=== PATIENT | male | born 1930 | race Caucasian/White ===

== ENCOUNTER 2017-09-03 17:00 | Inpatient (IN) | payer MEDICARE ==
[2017-09-03] MEDS ORDERED: Piperacillin/Tazobac ADVAN(*) 3.375 GM in NS 0.9% 100 ML* 100 ML IVPB ONE (17:09)
[2017-09-03] MEDS ORDERED: Cefepime(*) 2 GM in NS 0.9% 50 ML* 50 ML IVPB ONE (17:25)
[2017-09-03] MEDS ORDERED: NS 0.9% 1000 ML* 1,000 ML IV ONE (17:40)
[2017-09-03] MEDS ORDERED: Acetaminophen TAB* 325 MG PO ONE (17:41)
[2017-09-03 17:56] LABS: ABS Basophils 0 10^3/ul (0-0.2); ABS Eosinophils 0 10^3/ul (0-0.6); ABS Lymphocytes 0.4 10^3/ul (1.0-4.8); ABS Monocytes 15.6 10^3/ul (0-0.8); ABS Neutrophils 0.1 10^3/ul (1.5-7.7); ABS Nucleated RBC 0 10^3/ul; Eosinophil % 0 % (0-6); Hematocrit 31 % (42-52); Hemoglobin 10.5 g/dl (14.0-18.0); Lymphocyte % 2.4 % (25-47); Mean Corpuscular HGB Conc 35 g/dl (31-36); Mean Corpuscular Hemoglobin 31 pg (27-31); Mean Corpuscular Volume 91 fL (80-94); Mean Platelet Volume 8.4 um3 (7.4-10.4); Nucleated Red Blood Cells % 0.2; Platelet Count 13 10^3/ul (150-450); Red Blood Count 3.35 10^6/ul (4.00-5.40); Red Cell Distribution Width 20 % (10.5-15)
[2017-09-03 17:57] LABS: INR 1.19 (0.77-1.02)
[2017-09-03 18:04] LABS: EGFR Non-African American 75.9 (>60)
--- NOTE | 2017-09-03 18:23 | RAD ---
Indication: Fever with neutropenia. 2 views of the chest are reviewed. Dual-energy PA views were obtained. No mediastinal shift is noted. Heart is of normal size and configuration. There is bibasilar airspace disease which appears to be somewhat linear in appearance likely representing bibasilar atelectasis. No pleural fluid is identified. No pneumothorax is noted. IMPRESSION: Streaky airspace disease in the lung bases likely representing bibasilar atelectasis.
[2017-09-03 19:10] LABS: ABS Neutrophils 0 10^3/ul (1.5-7.7); Monocytes % 1 % (0-7)
[2017-09-03] MEDS ORDERED: Polyethylene Glycol 3350* 17 GM PACKET PO PRN (20:06)
[2017-09-03] MEDS ORDERED: Magnesium Hydroxide LIQ* 30 ML UDC PO PRN (20:06)
[2017-09-03] MEDS ORDERED: NS 0.9% 1000 ML* 1,000 ML IV SCH (20:15)
[2017-09-03] MEDS ORDERED: HydroxyUREA CAP* 500 MG CAP PO SCH (21:00)
--- NOTE | 2017-09-03 21:20 | ED ---
Sukh Roberts Angela, scribed for Antonino Medina MD on 09/03/17 at 1730 . HPI Febrile Illness - HPI Summary HPI Summary: This pt is an 86 y/o male, accompanied by his son in law, presenting to [facility] c/ o red dots all over his body. Son in law reports the pt was diagnosed with acute myeloid leukemia and is currently undergoing treatment at [facility]. Pt is not on chemotherapy. Pt noticed he began to develop red dots diffusely all over his body, including his thighs and neck. They called pt's oncologist and he advised them to come to the ED. Pt was noted to have a fever during triage of 101 F. He did not feel fever prior to coming to the ED. Denies abd pain, nausea, left hip pain. He states he is constipated. Pt denies difficulty voiding. Pt is from [place] and is visiting the area PMHx includes hypothyroid, left total replacement, hip was infected and found CA (in late Jan.), undifferentiated AML, anemia, thrombocytopenia. Pt is neutropenic with neutrophils % of 0. Pt was recently admitted to the hospital from 08/23-08/28 for leukocytosis. He had a platelet transfusion 4 days ago where he received 2 units of blood. He does not have a port. Pt is currently on Cipro every day, Acyclovir, Hydroxyurea, magic mouthwash ( for his mouth lesions). - History of Current Complaint Chief Complaint: EDFever Time Seen by Provider: 09/03/17 17:10 Hx Obtained From: Patient Onset/Duration: Started Hours Ago, Still Present Timing: Lasting Hours Pain Scale Used: 0-10 Numeric Aggravating Factors: Nothing Alleviating Factors: Nothing Associated Signs and Symptoms: Rash - red dots diffusely over body, Other: - Allergy/Home Medications Allergies/Adverse Reactions: Allergies Allergy/AdvReac Type Severity Reaction Status Date / Time No Known Allergies Allergy Verified 09/03/17 17:03 Home Medications: Home Medications Acyclovir* [Zovirax 400 MG TAB*] 400 mg PO BID 09/03/17 [History Confirmed 09/03] Allopurinol TAB* [Zyloprim 300 MG TAB*] 300 mg PO DAILY 09/03/17 [History Confirmed 09/03/17] Bisacodyl EC TAB* [Dulcolax EC TAB*] 5 mg PO DAILY PRN 09/03/17 [History Confirmed 09/03/17] Ciprofloxacin TAB* [Cipro 500 MG TAB*] 500 mg PO BID 09/03/17 [History Confirmed 09/03/17] Docusate Sodium [Stool Softener] 250 mg PO DAILY PRN 09/03/17 [History Confirmed 09/03/17] Finasteride [Proscar] 5 mg PO QAM 09/03/17 [History Confirmed 09/03/17] HydroxyUREA CAP* [Hydrea CAP*] 500 mg PO BID 09/03/17 [History Confirmed ] Levothyroxine TAB* [Synthroid TAB*] 112 mcg PO QAM 09/03/17 [History Confirmed 09/03/17] Magnesium Hydroxide LIQ* [Milk of Magnesia LIQ*] 30 ml PO DAILY PRN 09/03/17 [ History Confirmed 09/03/17] Melatonin (NF) 3 mg PO BEDTIME 09/03/17 [History Confirmed 09/03/17] Pentoxifylline CR TAB* [TRENtal CR TAB*] 400 mg PO TID 09/03/17 [History Confirmed 09/03/17] Polyethylene Glycol 3350* [Miralax*] 17 gm PO DAILY PRN 09/03/17 [History Confirmed 09/03/17] Primidone TAB(*) [Mysoline TAB(*)] 50 mg PO BID 09/03/17 [History Confirmed 05/19] Simvastatin TAB(NF) [Zocor(NF)] 20 mg PO BEDTIME 09/03/17 [History Confirmed 05/19] amLODIPine TAB* [Norvasc 5 mg TAB*] 5 mg PO QAM 09/03/17 [History Confirmed 05/19] metFORMIN* [Glucophage 500 MG TAB *] 500 mg PO BID 09/03/17 [History Confirmed 09/03/17] PMH/Surg Hx/FS Hx/Imm Hx Endocrine/Hematology History: Reports: Hx Diabetes, Hx Thyroid Disease - Hypothyroid, Hx Anemia Cardiovascular History: Reports: Hx Hypertension Denies: Hx Myocardial Infarction History: Reports: Hx Benign Prostatic Hyperplasia - Cancer History Cancer Type, Location and Year: Acute myeloid leukemia - Surgical History Surgery Procedure, Year, and Place: Left total hip replacement Infectious Disease History: No Infectious Disease History: Denies: Traveled Outside the [place] in Last 30 Days - Family History Known Family History: Negative: Cardiac Disease - Social History Alcohol Use: None Substance Use Type: Reports: None Smoking Status (MU): Never Smoked Tobacco Review of Systems Positive: Fever Negative: Cough Gastrointestinal: Other - constipation Negative: Abdominal Pain, Nausea Positive: no symptoms reported, see HPI Negative: Other - left hip pain Skin: Other - red dots all over body All Other Systems Reviewed And Are Negative: Yes Physical Exam - Summary Physical Exam Summary: Appearance: Well appearing, no pain distress Skin: warm, dry. He has small area of non blanching petechiae on his legs, neck , abdomen, back. Surgical scar on L hip, no redness or tenderness. Head/face: normal Eyes: EOMI, SUSHILA ENT: Sores inside the mouth, ulcerations on the palate. Neck: supple, non-tender Respiratory: Rustling breath sounds in the left upper lobe. Breath sounds present. Cardiovascular: RRR, pulses symmetrical Abdomen: non-tender, soft Bowel: present Musculoskeletal: normal, strength/ROM intact Neuro: normal, sensory motor intact, A&Ox3 Triage Information Reviewed: Yes Vital Signs On Initial Exam: Initial Vitals Temp Pulse Resp BP Pulse Ox 101.0 F 102 17 168/82 97 09/03/17 17:01 09/03/17 17:01 09/03/17 17:01 09/03/17 17:01 09/03/17 17:01 Vital Signs Reviewed: Yes Diagnostics - Vital Signs Vital Signs Temp Pulse Resp BP Pulse Ox 09/03/17 17:01 101.0 F 102 17 168/82 97 - Laboratory Lab Results: Lab Results 09/03/17 09/03/17 09/03/17 Range/Units 17:34 17:35 17:35 WBC 16.0 H (3.5-10.8) 10^3/ul RBC 3.35 L (4.00-5.40) 10^6/ul Hgb 10.5 L (14.0-18.0) g/dl Hct 31 L (42-52) % MCV 91 (80-94) fL MCH 31 (27-31) pg MCHC 35 (31-36) g/dl RDW 20 H (10.5-15) % Plt Count 13 L* (150-450) 10^3/ul MPV 8.4 (7.4-10.4) um3 Neut % (Auto) 0.4 L (38-83) % Lymph % (Auto) 2.4 L (25-47) % [place] % (Auto) 97.2 H (0-7) % Eos % (Auto) 0 (0-6) % Baso % (Auto) 0 (0-2) % Absolute Neuts (auto) 0.1 L* (1.5-7.7) 10^3/ul Absolute Lymphs (auto) 0.4 L (1.0-4.8) 10^3/ul Absolute Monos (auto) 15.6 H (0-0.8) 10^3/ul Absolute Eos (auto) 0 (0-0.6) 10^3/ul Absolute Basos (auto) 0 (0-0.2) 10^3/ul Absolute Nucleated RBC 0 10^3/ul Neutrophils % 0 L (38-83) % Lymphocytes % 29 (25-47) % Monocytes % 1 (0-7) % Eosinophils % 0 (0-6) % Basophils % 0 (0-2) % Blast Cells % 70 H* % Nucleated RBC % 0.2 Abs Neuts (Manual) 0 L* (1.5-7.7) 10^3/ul Abs Lymphs (Manual) 4.6 (1.0-4.8) 10^3/ul Abs Monocytes (Manual) 0.2 (0-0.8) 10^3/ul Absolute Eos (Manual) 0 (0-0.6) 10^3/ul Abs Basophils (Manual) 0 (0-0.2) 10^3/ul Normal RBC Morphology Normal (Normal) Hem Pathologist Commnt Pending INR (Anticoag Therapy) 1.19 H (0.77-1.02) APTT 35.2 (26.0-36.3) seconds Sodium (135-145) mmol/L Potassium (3.5-5.0) mmol/L Chloride (101-111) mmol/L Carbon Dioxide (22-32) mmol/L Anion Gap (2-11) mmol/L BUN (6-24) mg/dL Creatinine (0.67-1.17) mg/dL Est GFR ( Amer) (>60) Est GFR (Non-Af Amer) (>60) BUN/Creatinine Ratio (8-20) Glucose (70-100) mg/dL Lactic Acid (0.5-2.0) mmol/L Calcium (8.6-10.3) mg/dL Total Bilirubin (0.2-1.0) mg/dL AST (13-39) U/L ALT (7-52) U/L Alkaline Phosphatase (34-104) U/L Total Protein (6.4-8.9) g/dL Albumin (3.2-5.2) g/dL Globulin (2-4) g/dL Albumin/Globulin Ratio (1-3) Influenza A (Rapid) (Negative) Influenza B (Rapid) (Negative) Blood Type O Positive Antibody Screen Negative 09/03/17 09/03/17 09/03/17 Range/Units 17:35 17:35 18:16 WBC (3.5-10.8) 10^3/ul RBC (4.00-5.40) 10^6/ul Hgb (14.0-18.0) g/dl Hct (42-52) % MCV (80-94) fL MCH (27-31) pg MCHC (31-36) g/dl RDW (10.5-15) % Plt Count (150-450) 10^3/ul MPV (7.4-10.4) um3 Neut % (Auto) (38-83) % Lymph % (Auto) (25-47) % [place] % (Auto) (0-7) % Eos % (Auto) (0-6) % Baso % (Auto) (0-2) % Absolute Neuts (auto) (1.5-7.7) 10^3/ul Absolute Lymphs (auto) (1.0-4.8) 10^3/ul Absolute Monos (auto) (0-0.8) 10^3/ul Absolute Eos (auto) (0-0.6) 10^3/ul Absolute Basos (auto) (0-0.2) 10^3/ul Absolute Nucleated RBC 10^3/ul Neutrophils % (38-83) % Lymphocytes % (25-47) % Monocytes % (0-7) % Eosinophils % (0-6) % Basophils % (0-2) % Blast Cells % % Nucleated RBC % Abs Neuts (Manual) (1.5-7.7) 10^3/ul Abs Lymphs (Manual) (1.0-4.8) 10^3/ul Abs Monocytes (Manual) (0-0.8) 10^3/ul Absolute Eos (Manual) (0-0.6) 10^3/ul Abs Basophils (Manual) (0-0.2) 10^3/ul Normal RBC Morphology (Normal) Hem Pathologist Commnt INR (Anticoag Therapy) (0.77-1.02) APTT (26.0-36.3) seconds Sodium 130 L (135-145) mmol/L Potassium 4.2 (3.5-5.0) mmol/L Chloride 98 L (101-111) mmol/L Carbon Dioxide 23 (22-32) mmol/L Anion Gap 9 (2-11) mmol/L BUN 17 (6-24) mg/dL Creatinine 0.94 (0.67-1.17) mg/dL Est GFR ( Amer) 91.9 (>60) Est GFR (Non-Af Amer) 75.9 (>60) BUN/Creatinine Ratio 18.1 (8-20) Glucose 251 H (70-100) mg/dL Lactic Acid 1.4 (0.5-2.0) mmol/L Calcium 8.5 L (8.6-10.3) mg/dL Total Bilirubin 0.60 (0.2-1.0) mg/dL AST 81 H (13-39) U/L ALT 113 H (7-52) U/L Alkaline Phosphatase 142 H (34-104) U/L Total Protein 6.7 (6.4-8.9) g/dL Albumin 3.4 (3.2-5.2) g/dL Globulin 3.3 (2-4) g/dL Albumin/Globulin Ratio 1.0 (1-3) Influenza A (Rapid) Negative (Negative) Influenza B (Rapid) Negative (Negative) Blood Type Antibody Screen Result Diagrams: 09/03/17 17:35 09/03/17 17:35 Lab Statement: Any lab studies that have been ordered have been reviewed, and results considered in the medical decision making process. - Radiology Chest XR Xray Interpretation: Positive (See Comments) - IMPRESSION: Streaky airspace disease in the lung bases likely representing bibasilar atelectasis. Dr. Medina has reviewed this radiology report. Radiology Interpretation Completed By: Radiologist Re-Evaluation - Re-Evaluation First Eval Re-Evaluation Time: 17:48 Comment: They agree to stay in the hospital. Course/Dx - Course Course Of Treatment: Patient with neutropenia due to AML. Currently receiving palliative treatment from [facility]. Now with fever of unknown source. Antibiotics given shortly after arrival. IV fluids. Transfused platelets. Discussed case with oncology and the hospitalist. Admit to hospitalist service with oncology consult. - Febrile Illness Differential Diagnoses: Bacteremia, Medication Reaction, Neoplasm, Pneumonia, Sepsis, Viremia - Diagnoses Provider Diagnoses: Neutropenic fever, Thrombocytopenia, Petechiae - Provider Notifications Discussed Care Of Patient With: Antoine Blair Time Discussed With Above Provider: 17:44 Instructed by Provider To: Other - I discussed pt care with Dr. Blair, oncologist , who states his best recommendation is to admit pt here and he will consult on the pt. [18:27] I discussed with Dr. Moya, hospitalist, who accepted the pt for admission. - Critical Care Time Critical Care Time: 30-74 min - 30 minutes - CCT is EXCLUSIVE of separately billable procedures. Discharge - Sign-Out/Discharge Documenting (check all that apply): Discharge/Admit/Transfer - Admit - Discharge Plan Condition: Guarded Disposition: ADMITTED TO [facility] Referrals: No Primary Care Phys,NOPCP [Primary Care Provider] - - Billing Disposition and Condition Condition: GUARDED Disposition: Admitted to [facility] The documentation as recorded by the Sukh gutierrez Angela accurately reflects the service I personally performed and the decisions made by me, Antonino Medina MD.
[2017-09-03] MEDS: Primidone TAB(*) 50 MG PO SCH (22:52)
[2017-09-03] MEDS: Pentoxifylline CR TAB* 400 MG PO SCH (22:54)
[2017-09-03] MEDS: Atorvastatin* 10 MG TAB PO SCH (22:54)
[2017-09-03] MEDS: Docusate CAP* 100 MG PO SCH (22:54)
[2017-09-03] MEDS: Melatonin 3 MG TAB PO SCH (22:54)
[2017-09-03] MEDS: metFORMIN* 500 MG TAB PO SCH (22:54)
[2017-09-03] MEDS: Ciprofloxacin TAB* 500 MG PO SCH (22:54)
[2017-09-03] MEDS: Senna TAB PO SCH (22:54)
[2017-09-03] MEDS: Acyclovir* 400 MG TAB PO SCH (22:54)
[2017-09-03] MEDS: Magic M W2 Ben/Maal/Nyst/Lido* 240 ML MOUTHWASH (alt formulation) SWISH SWAL SCH (22:56)
[2017-09-03 23:41] LABS: Urine Appearance Clear; Urine Blood 3+ (Negative); Urine Color Yellow; Urine Ketones Negative (Negative); Urine Protein 1+(30 mg/dL) (Negative); Urine Specific Gravity 1.008 (1.010-1.030); Urine Urobilinogen Negative (Negative)
--- NOTE | 2017-09-04 02:14 | HP ---
ADMISSION HISTORY AND PHYSICAL: DATE OF ADMISSION: 09/03/17 PRIMARY CARE PROVIDER: His oncologist, Dr. Renae at [facility]. HEALTHCARE PROXY: His son-in-law, Adair. CODE STATUS: Full. Discussed with the patient and his healthcare proxy. SOURCE OF INFORMATION: History obtained from interview with the patient and his son-in-law as well as review from Dr. Renae's most recent note from . RELIABILITY: Good. CHIEF COMPLAINT: Rash. HISTORY OF PRESENT ILLNESS: This is an 86-year-old gentleman with past medical history of hypertension, hypothyroidism as well as a left total hip replacement in 2002 that had a recent infection with removal of the femoral component and extensive debridement, recently diagnosed with AML, undifferentiated type in February 2017. He underwent 4 cycles of azacitidine starting 02/07/17 and completed a fourth round in May 2017. He did not receive any further therapy or aza due to the persistently high circulation of blasts. They explored clinical trials; however, none were available partially due to the leukemia being undifferentiated. He has been followed at the [facility] for supportive transfusions. He was most recently admitted for leukocytosis from to 08/28/17. He was treated with Hydrea hospital stay notable for one episode of epistaxis, which he reports 1 episode of epistaxis since discharge. At that time, he received a platelet transfusion on 08/30/17 prior to traveling to the [facility] to spend time with the family. Review of his medical records indicated white blood cell count of 17.1 with ANC of 0 on and platelets of 33 dropping to platelets of 23 on 08/30/17 possibly before receipt of his platelets. Additionally, last known blast count on 08/28/17 was 85. He was feeling his usual state of health other than a sore mouth from known mucositis and ulcerations, but noticed a new rash on his abdomen. This rash on his abdomen was similar to what was previously reported on 08/30/17 noted on his forehead. He spoke to his oncologist, who referred him to local care. He was seen today and in the emergency room was found to have a temperature of 101 degrees Fahrenheit. He denies any subjective fevers or chills, nausea, vomiting, or lightheadedness. He suffers from constipation, has had no diarrhea. He has had no pain other than in his mouth. He has had no blurry vision or diplopia, headache, loss of consciousness or near loss of consciousness. PAST MEDICAL HISTORY: Includes type 2 diabetes, hypothyroidism, hypertension, left hip infection, AML, receiving supportive care. MEDICATIONS: From his most recent note include: 1. Magic Mouthwash on 1:1 ratio 5 mL every 4 hours as needed. 2. Ciprofloxacin 500 mg twice daily. 3. Hydrea 500 mg twice a day. 4. Allopurinol 1 cap daily. 5. Acyclovir 400 mg twice daily. 6. Finasteride 5 mg daily. 7. Simvastatin 20 mg daily. 8. Amlodipine 5 mg daily. 9. Melatonin 6 mg at bedtime. 10. Primidone 50 mg twice daily. 11. Metformin 500 mg once daily. 12. Pentoxifylline 400 mg CR three times a day with meals. 13. Levothyroxine 112 mcg daily. ALLERGIES: No known drug allergies. FAMILY HISTORY: Unremarkable. SOCIAL HISTORY: No illicits. Retired. PHYSICAL EXAMINATION GENERAL: Elderly man, stated age, sitting up in bed, interactive, in no apparent distress. VITAL SIGNS: In the emergency room, 163/84, heart rate 84, respiratory rate is 16, 98% on room air, T-max is 101. HEENT: Oropharynx has notable ulcerations in his left superior palate. Moist mucous membranes. Sclerae are anicteric. NECK: Non-elevated JVD. LUNGS: Rhonchi in his right base extending up one-third to the apex. HEART: 2/6 systolic ejection murmur loudest in the left upper sternal border. ABDOMEN: Soft, nontender, nondistended. EXTREMITIES: Warm and well-perfused without clubbing, cyanosis, or edema. NEUROLOGIC: He is alert and oriented x3. SKIN: Does indicate nodular, erythematous rash with each nodule about 1 mm in size, most notable in the upper abdomen as well as bilateral thighs, nonblanching. DIAGNOSTIC STUDIES/LAB DATA: Labs reviewed, notable for negative influenza. White blood cell count of 16.4 with 100 neutrophils, predominantly monocytes, 70 % absolute blasts, absolute neutrophils are 0 on manual count, platelets are 13 , hemoglobin is 10.5. INR 1.1. Sodium 130. BUN 17, creatinine 0.94. Calcium 8.5. AST 81, ALT 113, alk phos 142. X-ray, impression: Streaky airspace disease in the left lung bases likely representing bibasilar atelectasis. ASSESSMENT AND PLAN: This is an 86-year-old man with past medical history of acute myeloid leukemia, received 4 treatments with azacitidine without response , now on Hydrea presenting to the hospital with rash, found with neutropenic fever. 1. Neutropenic fever, received cefepime in the emergency room, continue 2 g q.8 hours. Neutropenic precautions and neutropenic diet. A liter of normal saline at 75 mL per hour slowly and Oncology consultation. 2. Thrombocytopenia, worse than his last known value. We will transfuse a unit of platelets now, recheck, likely in the setting of acute myeloid leukemia. 3. Type 2 diabetes, continue metformin low-dose. 4. Hypertension, continue amlodipine. 5. Acute myeloid leukemia, holding Hydrea in the setting of thrombocytopenia, fever. Restart based on Oncology recommendations. Continue allopurinol, acyclovir, ciprofloxacin. 6. Oral ulcers. Continue Magic Mouthwash and can increase dose as needed. 7. DVT prophylaxis. Contraindicated. 8. Code status is full. Discussed with the patient and his family. [id number]/CPS #: [id number]
[2017-09-04] MEDS: Cefepime 2 GM in Dextrose(*) 2 GM/50 ML BAG IV SCH ×3 (02:17→18:09)
[2017-09-04] MEDS: Levothyroxine TAB* 112 MCG TAB PO SCH (05:57)
[2017-09-04] MEDS: Acetaminophen TAB* 325 MG PO PRN ×4 (05:57→20:25)
[2017-09-04 06:06] LABS: INR 1.26 (0.77-1.02)
[2017-09-04 06:24] LABS: Monocytes % 1 % (0-7)
[2017-09-04 06:25] LABS: ABS Basophils 0 10^3/ul (0-0.2); ABS Eosinophils 0 10^3/ul (0-0.6); ABS Lymphocytes 2.8 10^3/ul (1.0-4.8); ABS Monocytes 12.5 10^3/ul (0-0.8); ABS Neutrophils 0 10^3/ul (1.5-7.7); ABS Nucleated RBC 0.1 10^3/ul; EGFR Non-African American 81.9 (>60); Eosinophil % 0 % (0-6); Hematocrit 29 % (42-52); Mean Corpuscular HGB Conc 35 g/dl (31-36); Mean Corpuscular Hemoglobin 32 pg (27-31); Mean Corpuscular Volume 90 fL (80-94); Nucleated Red Blood Cells % 0.3; Platelet Count 24 10^3/ul (150-450); Red Blood Count 3.17 10^6/ul (4.00-5.40); Red Cell Distribution Width 20 % (10.5-15); White Blood Count 15.3 10^3/ul (3.5-10.8)
[2017-09-04] MEDS: Pentoxifylline CR TAB* 400 MG PO SCH ×3 (08:55→20:09)
[2017-09-04] MEDS: Docusate CAP* 100 MG PO SCH ×2 (08:56→20:09)
[2017-09-04] MEDS: Ciprofloxacin TAB* 500 MG PO SCH (08:56)
[2017-09-04] MEDS: Senna TAB PO SCH ×2 (08:56→20:08)
[2017-09-04] MEDS: Finasteride TAB* 5 MG PO SCH (08:56)
[2017-09-04] MEDS: Primidone TAB(*) 50 MG PO SCH ×2 (08:56→20:08)
[2017-09-04] MEDS: Acyclovir* 400 MG TAB PO SCH (08:57)
[2017-09-04] MEDS: Allopurinol TAB* 300 MG PO SCH (08:57)
[2017-09-04] MEDS: metFORMIN* 500 MG TAB PO SCH ×2 (08:57→20:09)
[2017-09-04] MEDS: Magic M W2 Ben/Maal/Nyst/Lido* 240 ML MOUTHWASH (alt formulation) SWISH SWAL SCH ×4 (08:57→20:08)
[2017-09-04] MEDS ORDERED: amLODIPine TAB* 5 MG PO SCH (09:00)
[2017-09-04] MEDS: amLODIPine TAB* 5 MG PO SCH (09:57)
[2017-09-04] MEDS ORDERED: Morphine ORAL CONCENTRATE* 5 MG/0.25 ML ORAL.SYRIN SL PRN (11:12)
--- NOTE | 2017-09-04 12:46 | RAD ---
INDICATION: Neutropenic fever COMPARISON: Chest x-ray September 03, 2017 TECHNIQUE: Axial source images were obtained from the thoracic inlet to the hemidiaphragms. Coronal and sagittal reconstructed images were acquired. The visualized neck to include the thyroid appear normal. Chest wall: There are no acute abnormalities of the bony thorax or chest wall. There is no supraclavicular, infraclavicular, or axillary lymphadenopathy. Lungs : There is a 7 mm pleural-based nodule in the right lung apex and a peripheral 1 cm nodule in the lingular segment. There are no additional discrete nodules. There is consolidative change in right middle lobe with air bronchograms most consistent with a pneumonitis. There is bibasilar interstitial change. There is coarsening of the pulmonary interstitium There are no endobronchial lesions. Cardiomediastinal structures: The heart is normal in size. There is a trace pericardial effusion. There is no evidence of aortic aneurysm or dissection. The pulmonary vessels appear normal. There is no mediastinal or hilar adenopathy. The esophagus appears normal. Pleura : There are no significant pleural effusions. Other: Limited views the upper abdomen show an incompletely characterized low-density right hepatic lesion measuring 1.5 cm. This may represent a cyst. There is cholelithiasis. There are renal cortical and parapelvic cysts which are imaged in part. IMPRESSION: 1. Nonspecific subcentimeter nodularity as described. Consolidative change in the right middle lobe likely related acute pneumonitis. Suggest follow-up imaging. 2. Probable hepatic, renal cortical, and parapelvic cysts. 3. Cholelithiasis.
[2017-09-04] MEDS: ValACYclovir (*) 1 GM TAB PO SCH ×2 (13:55→20:21)
--- NOTE | 2017-09-04 14:57 | CONS ---
CONSULTATION REPORT: DATE OF CONSULT: 09/04/17 REASON FOR CONSULT: AML. 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 He presented with infection of a left hip replacement. In the process of evaluation, he was found to have peripheral blast. He was treated with prolonged course of IV and then p.o. antibiotics for the hip infection and subsequently started therapy for the AML. Given age and medical comorbidities, he was treated with azacytidine. He had four cycles through May 2017 but failed to respond. The hip infection remained controlled after replacement of the femoral component of the prosthesis. After stopping azacytidine in June, he initially did well. He followed at [facility] and there was a discussion about clinical trials. He applied for several clinical trials but was never accepted on a study because per family the AML was undifferentiated. He presented on 08/23/17 with increasing blasts and was started on hydroxyurea 1500 mg p.o. b.i.d. He initially did well that and was able to go home from the hospital. Last week, he developed sores in his mouth and hydroxyurea was held. He came to [facility] for family vacation with plans to be here for one week. Yesterday, he started to develop hematuria. He developed a diffuse rash with small erythematous red lesions and had a fever of 101. He came to the emergency room and was found to have a white count of 16,000, almost entirely blasts, hemoglobin 10.5, MCV 91, platelets 13,000. Because of the hematuria, he was given one unit of platelets and followup CBC showed a white count of 24,000, blasts 15.3 and hemoglobin down to 10. He was slightly hyponatremic, normal renal function, mild elevation in LFTs. He had a chest x-ray that was negative except for some consolidation in the base. Urine: There was +1 white blood cells, +3 red blood cells. Cultures to date are negative. He was started on cefepime 2 g q.8 hours and subsequently temperature is 98.0 today. Other than the hematuria and the rash, he has been feeling fine at his baseline. PAST MEDICAL HISTORY: 1. Hip abscess, January 2017, resolved with antibiotics and exchange of hardware. 2. Arthritis, hip replacement in 2012. 3. Diabetes. 4. Hypertension. 5. Peripheral vascular disease. 6. Hypothyroidism. 7. High cholesterol. PAST SURGICAL HISTORY: In addition to hip surgery as noted above, he had a TURP April 2017, which was uneventful. MEDICATIONS ON ADMISSION: 1. Magic mouthwash q.4 hours p.r.n. 2. Ciprofloxacin 500 twice daily. 3. Hydroxyurea 500 three times a day, had been on hold. 4. Allopurinol 300 mg daily. 5. Acyclovir 400 mg daily. 6. Proscar 5 mg daily. 7. Simvastatin 20 daily. 8. Amlodipine 5 mg daily. 9. Melatonin 2 mg at night. 10. Primidone 50 mg daily. 11. Metformin 500 mg daily. 12. Pentoxifylline 400 mg three times a day. 13. Synthroid 112 mcg daily. ALLERGIES: None. FAMILY HISTORY: The only significant history of malignancy is a granddaughter who had a brain cancer. SOCIAL HISTORY: Strong family support. Son-in-law was with him in clinic. He does not smoke, does not drink. He is retired and . is still alive. Three children, one is in [place] and he was on a multigenerational family vacation at [facility] when he came to the emergency room. REVIEW OF SYSTEMS: General: Energy has been low but stable. HEENT: Mouth sores started about a week and a half ago. He stopped hydroxyurea, did not really get any better. GI: Low appetite, he had been constipated. : Hematuria yesterday, otherwise negative. Respiratory: Negative. Cardiac: Negative. Neurologic: Negative. Skin: Rash as noted above. Hematologic and Lymphatic: No excessive bruising. PHYSICAL EXAM: Vital Signs: Temperature 98.0, pulse 87, BP 156/77, saturation 98%. HEENT: He has ulcerations in the posterior hard palate on the left side. No tongue lesions. No thrush. Lungs: Clear to auscultation. Heart: Regular rhythm. S1, S2. No murmurs or gallops. Nodes: No peripheral lymphadenopathy. Abdomen: No hepatosplenomegaly. Good bowel sounds, nontender. Skin: Small papules scattered throughout, 2 to 4 mm, bright red. Extremities: Decreased pulses. Lower extremities, no edema. Neurologic: Alert and oriented x3, full exam otherwise deferred. DIAGNOSTIC STUDIES/LAB DATA: Admission labs as noted and CBC today as noted above. 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 He has progressive disease over the past several weeks with multiple complications. He now comes in with neutropenic fever and pancytopenia. I discussed with the patient and the son-in-law that I think he is at the end stage of the disease. Patients with AML typically from infection or inability to sustain blood counts. He may be suffering both of those. Given that his fever occurred on ciprofloxacin, I agree with cefepime. I discussed the case with the environmental health and safety leader physician for Dr. Weldon at [facility] and their suggestion was also to get a CT of the chest to look for fungal infection. We discussed goals of care which is comfort and time with family. His options are that we try to maximize his platelets and find a suitable oral antibiotic regimen, so that he can be discharged to drive back to [place]. There will be a risk that he decompensates after discharge from progressive infection. However , hospital- hospital transfer back to [place] is unrealistic given cost of the ambulance. The second option is that he transition to hospice and supportive care only in [place]. We will consult with the hospice resident if a bed is available. 1. Given the mouth sores are not improved off hydroxyurea, we will give a trial of Valtrex 1000 mg p.o. b.i.d. and stop the acyclovir. Continue Magic mouth wash. 2. Increasing leukocytosis. Hydroxyurea 500 mg p.o. b.i.d. 3. Thrombocytopenia. Transfuse platelets under 10,000. 4. Infectious disease. I would stop the ciprofloxacin, continue with cefepime. We will send a CT of the chest, if we see suspicious nodules, treat empirically for fungal infection with voriconazole. 5. Discussed DNR and DNI with the patient and his son-in-law at length. My recommendation will be to not escalate care. Son-in-law seemed in favor. The patient is having a difficult time understanding limitations on care conceptually. The family will talk further. 6. Disposition will depend on palliative course they choose. We will continue to follow while in the hospital and be available for any questions. [id number]/[facility] #: [id number] [facility]
--- NOTE | 2017-09-04 15:16 | PN ---
Subjective Date of Service: 09/04/17 Interval History: Patient has had no recurrences of subjective fevers. Patient feeling tired but otherwise feeling well. Persistent dark urine without brayan blood. Pain with swallowing related to mouth ulcers unchanged. No new rash. Denies CP, SOB, F/C, N/V, abdominal pain, diarrhea, Dysuria, or other pain. Family History: Unchanged from Admission Social History: Unchanged from Admission Past Medical History: Unchanged from Admission Objective Active Medications: Acetaminophen (Tylenol Tab*) 650 mg PO Q4H PRN PRN Reason: FEVER/PAIN Last Admin: 09/04/17 14:04 Dose: 650 mg Allopurinol (Zyloprim Tab*) 300 mg PO DAILY [facility] Last Admin: 09/04/17 08:57 Dose: 300 mg Amlodipine Besylate (Norvasc Tab*) 10 mg PO QAM [facility] Last Admin: 09/04/17 09:57 Dose: 10 mg Atorvastatin Calcium (Lipitor*) 10 mg PO BEDTIME [facility] Last Admin: 09/03/17 22:54 Dose: 10 mg Docusate Sodium (Colace Cap*) 100 mg PO BID [facility] Last Admin: 09/04/17 08:56 Dose: 100 mg Finasteride (Proscar Tab*) 5 mg PO QAM [facility] Last Admin: 09/04/17 08:56 Dose: 5 mg Hydroxyurea (Hydrea Cap*) 500 mg PO BID [facility] Cefepime HCl (Maxipime 2 Gm In Dextrose Duplex (*)) 2 gm in 50 mls @ 100 mls/ hr IV Q8H [facility] Last Admin: 09/04/17 10:01 Dose: 100 mls/hr Levothyroxine Sodium (Synthroid Tab*) 112 mcg PO DAILY@0600 [facility] Last Admin: 09/04/17 05:57 Dose: 112 mcg Magnesium Hydroxide (Milk Of Magnesia Liq*) 30 ml PO DAILY PRN PRN Reason: CONSTIPATION Melatonin (Melatonin) 3 mg PO BEDTIME [facility] Last Admin: 09/03/17 22:54 Dose: 3 mg Metformin HCl (Glucophage*) 500 mg PO BID [facility] Last Admin: 09/04/17 08:57 Dose: 500 mg Morphine Sulfate (Morphine Oral Concentrate*) 5 mg SL Q2H PRN PRN Reason: PAIN Multi-Ingredient Mouthwash/Gargle (Magic M W2 Toni/Maal/Nyst/Lido*) 5 ml SWISH SWAL QID [facility] Last Admin: 09/04/17 13:56 Dose: 5 ml Pentoxifylline (Trental Cr Tab*) 400 mg PO TID [facility] Last Admin: 09/04/17 13:55 Dose: 400 mg Polyethylene Glycol/Electrolytes (Miralax*) 17 gm PO DAILY PRN PRN Reason: CONSTIPATION Last Admin: 09/04/17 08:57 Dose: 17 gm Primidone (Mysoline Tab(*)) 50 mg PO BID [facility] Last Admin: 09/04/17 08:56 Dose: 50 mg Senna (Senokot Tab*) 1 tab PO BID [facility] Last Admin: 09/04/17 08:56 Dose: 1 tab Valacyclovir HCl (Valtrex 1 Gm(*)) 1 gm PO BID [facility]; Protocol Last Admin: 09/04/17 13:55 Dose: 1 gm Vital Signs - 8 hr 09/04/17 09/04/17 09/04/17 07:39 08:00 11:24 Temperature 98.0 F 98.0 F Pulse Rate 86 87 Respiratory 18 18 19 Rate Blood Pressure 146/73 156/77 (mmHg) O2 Sat by Pulse 97 98 Oximetry Oxygen Devices in Use Now: None Appearance: Patient is an 86yo male who appears stated age and is sitting in the bed in [facility]. Eyes: No Scleral Icterus, PERRLA Ears/Nose/Mouth/Throat: Mucous Membranes Moist, - - Shallow erythmatous ulcerations on oral mucosa. Neck: NL Appearance and Movements; NL JVP, Trachea Midline Respiratory: Symmetrical Chest Expansion and Respiratory Effort, Clear to Auscultation Cardiovascular: NL Sounds; No Murmurs; No JVD, RRR, No Edema Abdominal: NL Sounds; No Tenderness; No Distention, No Hepatosplenomegaly Lymphatic: No Cervical Adenopathy Extremities: No Edema, No Clubbing, Cyanosis Skin: No Nodules or Sclerosis, - - Numerous Small non-blanching, hard, papules scattered across skin of abdomen. Neurological: Alert and Oriented x 3, NL Sensation, NL Muscle Strength and Tone , - - CN II-XII intact. 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 - Patient Problems (1) Acute myeloblastic leukemia Current Visit: Yes Status: Acute Code(s): C92.00 - ACUTE MYELOBLASTIC LEUKEMIA, NOT HAVING ACHIEVED REMISSION SNOMED Code(s): 94167649 Comment: Appreciate Hematology consult. Follows with [facility] outpatient. No tolerable treatment modality. Resumed Hydroxyurea. High percentage of circulating blasts. ANC count 0. Neutropenic precautions. WBC count up to 16k from 10K last week. Poor prognosis discussed with the patient. (2) Thrombocytopenia Current Visit: Yes Status: Acute Code(s): D69.6 - THROMBOCYTOPENIA, UNSPECIFIED SNOMED Code(s): 740109604 Comment: Severe, likely cause of hematuria. Transfuse below 10K. (3) Neutropenic fever Current Visit: Yes Status: Acute Code(s): D70.9 - NEUTROPENIA, UNSPECIFIED; R50.81 - FEVER PRESENTING WITH CONDITIONS CLASSIFIED ELSEWHERE SNOMED Code(s) : 582663308 Comment: Isolated fever to 101.0. Resolved after antibiotics. Continue Cefepime, Voriconazole, Valtrex. Stop Cipro and Acyclovir. Continue antibiotics indefinitely. (4) CAD (coronary artery disease) Current Visit: Yes Status: Acute Code(s): I25.10 - ATHSCL HEART DISEASE OF [place] CORONARY ARTERY W/O ANG PCTRS SNOMED Code(s): 77340344 Comment: Chest Pain free. Continue statin. Will discuss ending therapies aimed at senior care prevention. (5) PVD (peripheral vascular disease) Current Visit: Yes Status: Acute Code(s): I73.9 - PERIPHERAL VASCULAR DISEASE, UNSPECIFIED SNOMED Code(s): 213261364 Comment: Continue statin. (6) DM II (diabetes mellitus, type II), controlled Current Visit: Yes Status: Acute Code(s): E11.9 - TYPE 2 DIABETES MELLITUS WITHOUT COMPLICATIONS SNOMED Code(s): 75713770 Comment: Continue metformin. (7) Hypothyroid Current Visit: Yes Status: Acute Code(s): E03.9 - HYPOTHYROIDISM, UNSPECIFIED SNOMED Code(s): 82262989 Comment: Continue Synthroid. (8) DVT prophylaxis Current Visit: Yes Status: Acute Code(s): SOC0537 - SNOMED Code(s): 145648277 Comment: SCDs in setting of severe thrombocytopenia. (9) DNR (do not resuscitate) Current Visit: Yes Status: Acute Comment: MOLST filled out and signed with patient. Status and Disposition: Inpatient.
[2017-09-04] MEDS: VORICONAZOLE 50 MG PO SCH (16:39)
[2017-09-04] MEDS: Melatonin 3 MG TAB PO SCH (20:08)
[2017-09-04] MEDS: Atorvastatin* 10 MG TAB PO SCH (20:08)
[2017-09-04] MEDS: HydroxyUREA CAP* 500 MG CAP PO SCH (20:13)
[2017-09-05] MEDS: Cefepime 2 GM in Dextrose(*) 2 GM/50 ML BAG IV SCH ×2 (02:11→09:11)
[2017-09-05] MEDS: VORICONAZOLE 50 MG PO SCH (04:59)
[2017-09-05] MEDS: Levothyroxine TAB* 112 MCG TAB PO SCH (04:59)
[2017-09-05] MEDS: Acetaminophen TAB* 325 MG PO PRN (06:24)
[2017-09-05 07:00] LABS: ABS Basophils 0 10^3/ul (0-0.2); ABS Eosinophils 0 10^3/ul (0-0.6); ABS Nucleated RBC 0 10^3/ul; Hematocrit 30 % (42-52); Hemoglobin 10.4 g/dl (14.0-18.0); Mean Corpuscular HGB Conc 35 g/dl (31-36); Mean Corpuscular Hemoglobin 32 pg (27-31); Mean Corpuscular Volume 90 fL (80-94); Mean Platelet Volume 8.3 um3 (7.4-10.4); Platelet Count 19 10^3/ul (150-450); Red Cell Distribution Width 20 % (10.5-15); White Blood Count 22.8 10^3/ul (3.5-10.8)
[2017-09-05 07:08] LABS: EGFR Non-African American 77.8 (>60)
[2017-09-05 07:14] VITALS: BP 154/76
[2017-09-05 08:21] LABS: ABS Neutrophils 0 10^3/ul (1.5-7.7)
[2017-09-05 08:23] LABS: ABS Lymphocytes 2.1 10^3/ul (1.0-4.8); ABS Monocytes 0 10^3/ul (0-0.8)
[2017-09-05 08:24] LABS: ABS Neutrophils 0 10^3/ul (1.5-7.7); Monocytes % 0 % (0-7)
[2017-09-05] MEDS ORDERED: Magnesium Oxide TAB* 400 MG PO SCH (09:00)
--- NOTE | 2017-09-05 09:06 | PN ---
Progress Note - Progress Note Date of Service: 09/05/17 SOAP: Subjective: []Feeling fine today. Eating breakfast. Mouth still hurts. No fevers. Allopurinol (Zyloprim Tab*) 300 mg PO DAILY [facility] Last Admin: 09/04/17 08:57 Dose: 300 mg Amlodipine Besylate (Norvasc Tab*) 10 mg PO QAM [facility] Last Admin: 09/04/17 09:57 Dose: 10 mg Atorvastatin Calcium (Lipitor*) 10 mg PO BEDTIME [facility] Last Admin: 09/04/17 20:08 Dose: 10 mg Docusate Sodium (Colace Cap*) 100 mg PO BID [facility] Last Admin: 09/04/17 20:09 Dose: 100 mg Finasteride (Proscar Tab*) 5 mg PO QAM [facility] Last Admin: 09/04/17 08:56 Dose: 5 mg Hydroxyurea (Hydrea Cap*) 500 mg PO BID [facility] Last Admin: 09/04/17 20:13 Dose: 500 mg Cefepime HCl (Maxipime 2 Gm In Dextrose Duplex (*)) 2 gm in 50 mls @ 100 mls/ hr IV Q8H [facility] Last Admin: 09/05/17 02:11 Dose: 100 mls/hr Levothyroxine Sodium (Synthroid Tab*) 112 mcg PO DAILY@0600 [facility] Last Admin: 09/05/17 04:59 Dose: 112 mcg Magnesium Hydroxide (Milk Of Magnesia Liq*) 30 ml PO DAILY PRN PRN Reason: CONSTIPATION Magnesium Oxide (Magox 400 Tab*) 800 mg PO DAILY [facility] Melatonin (Melatonin) 3 mg PO BEDTIME [facility] Last Admin: 09/04/17 20:08 Dose: 3 mg Metformin HCl (Glucophage*) 500 mg PO BID [facility] Last Admin: 09/04/17 20:09 Dose: 500 mg Morphine Sulfate (Morphine Oral Concentrate*) 5 mg SL Q2H PRN PRN Reason: PAIN Multi-Ingredient Mouthwash/Gargle (Magic M W2 Toni/Maal/Nyst/Lido*) 5 ml SWISH SWAL QID [facility] Last Admin: 09/04/17 20:08 Dose: 5 ml Pentoxifylline (Trental Cr Tab*) 400 mg PO TID [facility] Last Admin: 09/04/17 20:09 Dose: 400 mg Polyethylene Glycol/Electrolytes (Miralax*) 17 gm PO DAILY PRN PRN Reason: CONSTIPATION Last Admin: 09/04/17 08:57 Dose: 17 gm Primidone (Mysoline Tab(*)) 50 mg PO BID [facility] Last Admin: 09/04/17 20:08 Dose: 50 mg Senna (Senokot Tab*) 1 tab PO BID [facility] Last Admin: 09/04/17 20:08 Dose: 1 tab Valacyclovir HCl (Valtrex 1 Gm(*)) 1 gm PO BID [facility]; Protocol Last Admin: 09/04/17 20:21 Dose: 1 gm Voriconazole (Vfend (Nf)) 200 mg PO Q12H [facility] Last Admin: 09/05/17 04:59 Dose: 200 mg Objective: [] Vital Signs Temp Pulse Resp BP Pulse Ox 98.3 F 102 18 154/76 95 09/05/17 07:13 09/05/17 07:13 09/05/17 07:13 09/05/17 07:13 09/05/17 07:13 HEENT - did not look again at lesions, eating. No LAD CTA Irregular, S1S2, rate 80s +BS NT ND Ext good pulses, no edema skin no change, rash but no large bruises CT chest wtih right side infiltrate and several small nodules, no old for comparison. Assessment: []86 year old AML progressing and on HU, focus of care is palliative. Plan today is for him to be discharged and drive back to [place] to meet with his doctors at [facility]. Remains neutropenic, moderate increase in blast count. Plan: []1. Discharge on Valtrex 1000 mg po bid, Vorconizole 200 mg po q12 and Augmentin 875 mg po q 12, start this afternoon. 2. No transfusion today. 3. Continue HU at 500 mg po bid. 3. Follow up in [facility] next 48 hrs.
[2017-09-05] MEDS: Primidone TAB(*) 50 MG PO SCH (09:08)
[2017-09-05] MEDS: HydroxyUREA CAP* 500 MG CAP PO SCH (09:09)
[2017-09-05] MEDS: Allopurinol TAB* 300 MG PO SCH (09:09)
[2017-09-05] MEDS: Pentoxifylline CR TAB* 400 MG PO SCH (09:09)
[2017-09-05] MEDS: Senna TAB PO SCH (09:09)
[2017-09-05] MEDS: Docusate CAP* 100 MG PO SCH (09:09)
[2017-09-05] MEDS: Finasteride TAB* 5 MG PO SCH (09:09)
[2017-09-05] MEDS: metFORMIN* 500 MG TAB PO SCH (09:09)
[2017-09-05] MEDS: amLODIPine TAB* 5 MG PO SCH (09:10)
[2017-09-05] MEDS: ValACYclovir (*) 1 GM TAB PO SCH (09:10)
[2017-09-05] MEDS: Magic M W2 Ben/Maal/Nyst/Lido* 240 ML MOUTHWASH (alt formulation) SWISH SWAL SCH (09:10)
--- NOTE | 2017-09-05 10:32 | DS ---
CC: Dr. Marilou Villatoro; Dr. Fatemeh Renae.* DISCHARGE SUMMARY: DATE OF ADMISSION: 09/03/17 DATE OF DISCHARGE: 09/05/17 PRIMARY CARE PROVIDER: Dr. Fatemeh Renae, [facility]. MY ATTENDING WHILE IN THE HOSPITAL: Dr. Marilou Villatoro* (dictated by SHANE Alex). PRIMARY DISCHARGE DIAGNOSES: 1. Neutropenic fever. 2. Acute myelogenous leukemia. 3. Mucositis. 4. Severe thrombocytopenia. 5. Possible Fungal Pneumonia SECONDARY DISCHARGE DIAGNOSES: 1. Diabetes mellitus. 2. Hypothyroidism. 3. Hypertension. 4. Essential tremor. STUDIES DONE WHILE IN THE HOSPITAL: Chest x-ray from 09/03/17 read as streaky airspace disease in the lung bases, likely representing bibasilar atelectasis. Chest CT from 09/04/17 read as nonspecific subcentimeter nodularity, consolidative change in the right middle lobe, likely representing acute pneumonitis, probable hepatic, renal cortical and parapelvic cyst, cholelithiasis. MEDICATIONS AT DISCHARGE: 1. MiraLAX 17 g p.o. daily as needed. 2. Milk of magnesia 30 mL p.o. daily as needed. 3. Dulcolax 5 mg p.o. daily as needed. 4. Docusate 250 mg p.o. daily as needed. 5. Melatonin 3 mg p.o. at bedtime. 6. Finasteride 5 mg p.o. q. a.m. 7. Hydroxyurea 500 mg p.o. b.i.d. 8. Allopurinol 300 mg p.o. daily. 9. Metformin 500 mg p.o. b.i.d. 10. Primidone 50 mg p.o. b.i.d. 11. Pentoxifylline 400 mg p.o. t.i.d. 12. Amlodipine 10 mg p.o. q.a.m. 13. Ciprofloxacin 500 mg p.o. b.i.d. 14. Levothyroxine 112 mcg p.o. q.a.m. 15. Magic mouthwash 5 mL cook islander and swallow 4 times daily. 16. Valacyclovir 1 g p.o. b.i.d. 17. Voriconazole 200 mg p.o. q. 12 hours. Medications discontinued at discharge: Acyclovir. HOSPITAL COURSE: This is a brief summary of the patient's presentation. For more details please see the history and physical from Dr. Wes Brambila on 05/19. In brief, the patient is an 86-year-old male with a past medical history significant for the above who is on vacation at [facility] from [place] for a family function. The patient has been recently diagnosed with acute myelogenous leukemia undergoing 4 cycles of azacitidine which failed to decrease his high circulation of blasts. Clinical trials were explored and no other treatment options with curative potential were found. The patient was recently admitted to [facility] with severe thrombocytopenia and received a platelet transfusion on 08/30/17 with a low platelet count of 23. The patient also had a blast count of 85 n 08/28/17. The patient called his oncologist for a new rash on his abdomen consisting of small red hard papules. The patient had no other symptoms besides pain in his mouth, but was found to have a fever of 101.0 while in the emergency department and an absolute neutrophil count of 0.1. The patient was admitted to the hospital for neutropenic fever, was started of cefepime. The patient received Zosyn and vancomycin in the emergency department. The patient was continued on cefepime. The patient had no other fevers while in the hospital. The patient's blood cultures came back negative. The patient was negative for influenza. The patient did not have a positive urine culture. The patient had platelet count of 13 upon presentation to the hospital which increased to 24 after 1 unit of platelets. The patient's blast counts were 70 on 09/03/17 and 75 on 09/04/17. The patient had a low sodium at 130 which decreased to 129 on 09/05/17 as well as glucoses in the 200s. The patient also had mildly elevated liver enzymes, initial AST of 81, ALT of 113, alkaline phosphatase of 142 slightly decreased to 62, 84, and 176 on the day of discharge. The patient had positive blood and 1+ white blood cell count in his urine without leukocyte esterase or nitrite and negative culture. The patient had negative influenza testing. The patient was seen in consultation by Dr. Antoine Blair of oncology who recommended further treatment for neutropenic fever, resumption of hydroxyurea for his increasing white blood cell count which was 16,000 on admission decreased to 15, 300 on 09/04/17 and increased to 22.8 on 09/05/17. Dr. Blair also recommended switching the patient's antiviral to valacyclovir as well as obtain CT of the chest at the recommendation of the patient's outpatient oncologist to assess for possible fungal infection which showed nodularity and voriconazole was started for concern of possible fungal pneumonia. The patient's goal for care were discussed with both the patient and his family and the poor prognosis without treatment based on new development of neutropenic fever, persistent blastocytosis, profound thrombocytopenia without viable treatment options. It was discussed with the patient to sign a DNR/DNI, but outlining no other limitations on medical intervention. It was discussed with the patient that his options would be for continued treatment observation in [place] with possible hospice arrangement in [place] or to return to [place] for medical care closer to home which would consist likely of a discharge with private vehicle transportation to [place] and re-presenting to the emergency room there due to the prohibitively high cost of a hospital to hospital transfer. After discussion with the family, the patient opted for this option. The patient remained stable overnight on 09/04/17 to 09/05/17 and was amendable to discharge and transport to [place] as above after his morning dose of cefepime on 08/06/17. Discontinuation of long-term treatments for the prevention of chronic disease such as discontinuation of his simvastatin and allopurinol was discussed with the patient and he opted to discuss this with his doctors in [place] before making a decision about discontinuing these medications. PHYSICAL EXAMINATION AT DISCHARGE: General: The patient is a 86-year-old male who appears the stated age, and sitting comfortably in bed, in no acute distress. Vital Signs: At the time of evaluation temperature 98.3, pulse rate 102, respiratory rate 18, oxygen saturation 95% on room air, and blood pressure 154/ 76. HEENT: Head normocephalic and atraumatic. Sclerae anicteric. No conjunctival injection. Oral mucosa moist, shallow erythematous ulcerations in the posterior pharynx and buccal mucosa. Neck: Supple and nontender. No lymphadenopathy. No carotid bruits auscultated. No JVD. Cardiac: Tachycardic. No clicks, murmurs, gallops, or rubs. Pulses 2+ in bilateral dorsalis pedis, posterior tibialis, and radial areas. Respiratory: Clear to auscultation bilaterally. Slight inspiratory rales heard in the bilateral lower lobes which clear with deep inspiration. No adventitious lung sounds. Abdomen: Soft, nontender, and nondistended. Bowel sounds present, normoactive in all 4 quadrants. No hepatosplenomegaly. No abdominal bruits auscultated. Genitourinary: No suprapubic or CVA tenderness. Skin: Persistent wide spread rash on the abdomen consisting numerous small papules, nonblanching. Neuro: Cranial nerves II through XII intact. No focal deficits. Alert and oriented x3. Psychiatric: Pleasant and cooperative. LABORATORY DATA: On the day of discharge: White blood cell count 22,800, hemoglobin 10.4, hematocrit 30, platelet count 19, absolute neutrophil count 0.1 , absolute lymphocytes 0.1, absolute monocytes 22.6. Sodium 129, potassium 3.6 , chloride 100, carbon-dioxide 20, anion gap 9, BUN 18, creatinine 0.92, glucose 200, calcium 7.9, magnesium 1.6. Bilirubin 0.7, AST 62, ALT 84, alkaline phosphatase 176, total protein 6.1, albumin 3.0, globulin 3.1. DISCHARGE PLAN: The patient will be discharged from this hospital and will drive directly back to the [facility] where he will re-present to the emergency department for evaluation for continued care of neutropenic fever as well as to discuss treatment options for his acute myelogenous leukemia. Though the patient has previously been told that there are limited interventions available and that his prognosis is very poor, plans for end of life care have been discussed with the patient and these will be deferred to when he is in [place], so arrangements can be made as necessary for care closer to home. The patient will be continued on his Hydrea. The patient will be given a dose of cefepime immediately before he is discharged. If he is delayed in getting to care, we will continue with his ciprofloxacin which he has available starting 8 hours after his last dose of cefepime. The patient will be continued on Valtrex, voriconazole. His Hydrea will be resumed. The patient will be continued on his other home medications. The patient should have regular unrestricted diet and engage in activity as tolerated. The patient is a DNR/DNI but has been told to present to a closer facility if he has alarming symptoms such severe alterations in mental status, respiratory distress while en route to [place]. TIME SPENT: Approximately 60 minutes was spent on this discharge, 30 of which was spent [id number] with the patient, obtaining history and physical and discussing treatment plan. SHANE ALEX [id number]/[facility] #: [id number] TITO
== END 2017-09-05 10:30 | disposition home or self-care (01) | DRG 808 ==
LOC: EDBD → ED 17:00 → MED 20:03
PROVIDERS: ADMIT Internal Medicine; ATTEND Internal Medicine
PROC: 30233N1 Transfusion of Nonautologous Red Blood Cells into Peripheral Vein, Percutaneous Approach (ICD-10-PCS; principal; 2017-09-03)
DX: D70.9 Neutropenia, unspecified (principal); J16.8 Pneumonia due to other specified infectious organisms; C92.00 Acute myeloblastic leukemia, not having achieved remission; J98.11 Atelectasis; K12.30 Oral mucositis (ulcerative), unspecified; R50.81 Fever presenting with conditions classified elsewhere; D69.6 Thrombocytopenia, unspecified; E11.51 Type 2 diabetes mellitus with diabetic peripheral angiopathy without gangrene; E03.9 Hypothyroidism, unspecified; I10 Essential (primary) hypertension; G25.0 Essential tremor; R21 Rash and other nonspecific skin eruption; Z66 Do not resuscitate; Z96.642 Presence of left artificial hip joint; K59.00 Constipation, unspecified; Z79.84 Long term (current) use of oral hypoglycemic drugs; Z79.899 Other long term (current) drug therapy; Z80.8 Family history of malignant neoplasm of other organs or systems
CPT/HCPCS: 36415; 71046; 71250; 80048; 80053; 80076; 81003; 81015; 83605; 83735; 85025; 85060; 85610; 85730; 86850; 86900; 86901; 87040; 87086; 99223; 99232; 99284; A9270-GY; J0692; P9035